=== PATIENT | female | born 1960 | race Caucasian/White ===

== ENCOUNTER 2022-09-05 06:55 | Outpatient (CLI) | payer BC | END 2022-09-05 06:56 | disposition home or self-care (01) | LOC: BICULT 06:55 | PROVIDERS: ATTEND Internal Medicine | DX: E03.9 Hypothyroidism, unspecified (principal); E04.2 Nontoxic multinodular goiter | CPT/HCPCS: 76536 ==

== ENCOUNTER 2023-12-27 07:27 | Outpatient (CLI) | payer BC ==
[2023-12-27] MEDS ORDERED: Regadenoson 0.4 MG/5 ML SYRINGE ONE (09:57)
== END 2023-12-27 07:28 | disposition home or self-care (01) ==
LOC: NM 07:27
PROVIDERS: ATTEND Internal Medicine
DX: R07.89 Other chest pain (principal); R00.2 Palpitations
CPT/HCPCS: 78452; 93017; A9502; J2785